=== PATIENT | male | born 1950 | race Caucasian/White ===

== ENCOUNTER 2017-03-23 14:07 | Inpatient (IN) | payer OTHER, MEDICARE ==
[~2017-03-23 14:07] MED LIST: ALPR0.5T99 PO; DILA2TAB4 PO; FERR324T4 PO; GABA300C5 PO; LISI10TA3 PO; METO25TA3 PO; PAIN MEDICINE PO; PRIN10TA PO; SOMA350T PO; TAB-TAB PO
[2017-03-23] MEDS ORDERED: FLUMAZENIL 0.5 MG/5 ML VIAL IV PUSH PRN (16:45)
[2017-03-23] MEDS ORDERED: LORazepam 2 MG TAB PO PRN (16:45)
[2017-03-23] MEDS ORDERED: LACTULOSE SYRUP 20 GM/30 ML CUP PO PRN (16:45)
[2017-03-23] MEDS ORDERED: MAGNESIUM HYDROXIDE SUSP 30 ML CUP PO PRN (16:45)
[2017-03-23] MEDS ORDERED: SENNOSIDES 8.6 MG TAB PO PRN (16:45)
[2017-03-23] MEDS ORDERED: SODIUM CHLORIDE 0.9% FLUSH 10 ML FLUSH IV FLUSH PRN (16:45)
[2017-03-23] MEDS ORDERED: LORazepam 1 MG TAB PO PRN (16:45)
[2017-03-23] MEDS ORDERED: ONDANSETRON HCL 4 MG/2 ML VIAL IVP PRN (16:45)
[2017-03-23] MEDS ORDERED: NALOXONE HCL 0.4 MG/ML AMP IV PRN (16:45)
[2017-03-23] MEDS ORDERED: ENALAPRILAT 1.25 MG/ML VIAL IV PUSH PRN (16:45)
[2017-03-23] MEDS ORDERED: HYDROmorphone HCL PF 1 MG/ML VIAL IV PUSH PRN (16:45)
[2017-03-23] MEDS ORDERED: LORazepam 2 MG/ML VIAL IV PUSH PRN ×5 (16:45)
[2017-03-23] MEDS ORDERED: BISACODYL 10 MG SUPP RECTAL PRN (16:45)
[2017-03-23 17:10] LABS: INDIRECT BILIRUBIN 0.5 MG/DL (0.0-0.8); TOTAL BILIRUBIN ADULT 0.6 MG/DL (0.2-1.0)
[2017-03-23 18:07] LABS: AMYLASE 124 U/L (25-115); CREATINE KINASE 143 U/L (39-308)
[2017-03-23 18:47] LABS: CKMB LESS THAN 1.0 NG/ML (0.5-3.6)
[2017-03-23] MEDS: DOCUSATE SODIUM 50 MG/SENNA 8.6 MG TAB PO SCH (19:50)
[2017-03-23] MEDS: SODIUM CHLORIDE 0.9% FLUSH 10 ML FLUSH IV FLUSH SCH (19:52)
[2017-03-23] MEDS: SODIUM CHLOR 0.9% 1000 ML INJ 1,000 ML IV SCH (19:52)
[2017-03-23] MEDS: hydrALAZINE HCL 20 MG/ML VIAL IV PUSH PRN (19:52)
[2017-03-23] MEDS: NITROGLYCERIN 2% OINT 1 GM PACKET TOPICAL SCH (19:52)
[2017-03-23 20:21] VITALS: BP 190/90; PULSE 67; RESP 20; TEMP 99.1; O2SAT 98
[2017-03-23 20:27] VITALS: PULSE 69
[2017-03-23 23:15] VITALS: PULSE 80
[2017-03-24] VITALS (9 sets, daily range): BP systolic 130–183; BP diastolic 75–114; PULSE 71–90; RESP 16–22; TEMP 96.7–98.9; O2SAT 92–97
[2017-03-24] MEDS: NITROGLYCERIN 2% OINT 1 GM PACKET TOPICAL SCH ×4 (00:37→18:07)
[2017-03-24 01:20] LABS: CREATINE KINASE 70 U/L (39-308)
[2017-03-24] MEDS: hydrALAZINE HCL 20 MG/ML VIAL IV PUSH PRN ×2 (04:54→22:22)
[2017-03-24] MEDS: SODIUM CHLOR 0.9% 1000 ML INJ 1,000 ML IV SCH ×3 (05:32→23:04)
[2017-03-24 07:24] LABS: AUTOMATED NEUTROPHIL # 11.9 TH/MM3 (1.8-7.7); BASOPHIL % 0.2 % (0.0-2.0); EOSINOPHIL % 0.1 % (0.0-4.0); HEMATOCRIT 42.2 % (39.0-51.0); HEMO FLAGS DIFF FINAL; LYMPH % 9.2 % (9.0-44.0); LYMPHOCYTE # 1.3 TH/MM3 (1.0-4.8); MEAN CELL VOLUME 92.8 FL (80.0-100.0); MEAN CORPUSCULAR HEMOGLOBIN 31.7 PG (27.0-34.0); MEAN CORPUSCULAR HGB CONC 34.1 % (32.0-36.0); MONO % 7.2 % (0.0-8.0); NEUT % 83.3 % (16.0-70.0); PLATELET COUNT 210 TH/MM3 (150-450); RED BLOOD COUNT 4.55 MIL/MM3 (4.50-5.90); RED CELL DISTRIBUTION WIDTH 12.6 % (11.6-17.2); WHITE BLOOD COUNT 14.3 TH/MM3 (4.0-11.0)
[2017-03-24] MEDS: SODIUM CHLORIDE 0.9% FLUSH 10 ML FLUSH IV FLUSH SCH ×2 (09:00→22:20)
--- NOTE | 2017-03-24 09:03 | EKG ---
Date Performed: 03/24/2017 Time Performed: 00:02:18 PTAGE: 67 years EKG: Sinus rhythm POSSIBLE RIGHT VENTRICULAR CONDUCTION DELAY BORDERLINE ECG PREVIOUS TRACING : 03/03/2010 23.36 DOCTOR: Dhruv Kaiser Interpretating Date/Time 03/24/2017 09:02:13
[2017-03-24] MEDS: DOCUSATE SODIUM 50 MG/SENNA 8.6 MG TAB PO SCH ×2 (09:42→22:21)
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
[2017-03-24] MEDS ORDERED: REGADENOSON INJ 0.4 MG/5 ML SYR IV ONE (11:09)
--- NOTE | 2017-03-24 12:03 | RADRPT ---
EXAM DATE/TIME: 03/24/2017 10:55 [facility] COMPARISON: No previous studies available for comparison. INDICATIONS : Substernal chest pain. Angina. DOSE: 25.8 mCi Tc99m Myoview at stress. 8.1 mCi Tc99m Myoview at rest. 0.4 mg Lexiscan STRESS SYMPTOMS: None. EJECTION FRACTION: > 70% MEDICAL HISTORY : Hypertension. SURGICAL HISTORY : Back surgery and testical removed. ENCOUNTER: Initial ACUITY: 1 day PAIN SCALE: 5/10 LOCATION: Substernal chest TECHNIQUE: The patient underwent pharmacologic stress with infusion of prescribed dose. Continuous ECG tracing was monitored during stress. Gated SPECT imaging was performed after stress and conventional SPECT i maging was performed at rest. The examination was performed on a SPECT/CT scanner, both attenuation and non-corrected datasets were reviewed. FINDINGS: DISTRIBUTION: The maximum perfused segment at stress is in the septal wall. PERFUSION STUDY: The pattern of perfusion at stress is within normal limits. GATED STUDY: There is intact wall motion and thickening without hypokinetic or dyskinetic segments. CONCLUSION: Normal examination. RISK CATEGORY: Low (<1% Annual Mortality Rate) Arnol Snow MD on March 24, 2017 at 12:01 Board Certified Radiologist. This report was verified electronically.
--- NOTE | 2017-03-24 15:14 | HHI.DCPOC ---
Discharge Care Plan Diagnosis: (1) Chest pain Goals to Promote Your Health * To prevent worsening of your condition and complications * To maintain your health at the optimal level Directions to Meet Your Goals Take your medications as prescribed Follow your dietary instruction Follow activity as directed Keep your appointments as scheduled Take your immunizations and boosters as scheduled If your symptoms worsen call your PCP, if no PCP go to Urgent Care Center or Emergency Room Smoking is Dangerous to Your Health. Avoid second hand smoke Call the 24-hour hour crisis hotline for domestic abuse at Nella Orellana MD Mar 24, 2017 15:14
[2017-03-24] MEDS ORDERED: LEVE500 PO (15:47)
--- NOTE | 2017-03-24 21:07 | MG ---
cc: BRITTNEY GREENBERG M.D. Lab No: Date: 03/24/2017 Age: Sex: M Race: DATE OF 1950, 67 years old. EEG NUMBER [id number] REFERRING PHYSICIAN Dr. Stark. ROOM 8318 With hyperventilation and photic stimulation. Some rhythmic activity towards the end of the study is noted but oxygen therapy technician marked with start and stop. Awake, drowsy study. INDICATION A 67-year-old man had a seizure, then sharp left-sided chest pain with shortness of breath. Workup was negative. History of anemia, alcohol, tobacco, substance abuse. MEDICATIONS On Apresoline. Lexiscan was done I believe and nitroglycerine. DESCRIPTION OF RECORD The patient has an alpha rhythm of 8.0-8.5 Hz, 20 40 microvolts. There is symmetrical background, some muscle movement myogenic artifact is seen. EKG is artifactual. Photic stimulation does elicit a posterior driving response but superimposed eye movement is seen as well. Hyperventilation is symmetrical. Eye movement is noted again. Traffic Administrator notes and documents some sharps seen predominantly in the frontal central regions initially and then it goes to bilateral. at epoch 119 and then dissipates on 120, then again by epoch 125 127. Isolated event. Phase reversals seen at epoch 143 again in the frontal central right region. IMPRESSION Abnormal EEG due to some sharp wave activity as well phase reversals. Some were occurring more on the right hemisphere. Rule out structural lesion, stroke, mass versus other. Clinical correlation indicated. MD BIMAL Riley/BRYCE /8:23 PM /8:52 PM
[2017-03-24] MEDS: levETIRAcetam 500 MG TAB PO SCH (22:22)
[2017-03-25] VITALS: BP 155/99; PULSE 119; RESP 18; TEMP 98.6; O2SAT 93
[2017-03-25] MEDS: NITROGLYCERIN 2% OINT 1 GM PACKET TOPICAL SCH ×2 (06:44)
[2017-03-25 08:00] VITALS: BP 100/80; PULSE 122; RESP 18; TEMP 97.6; O2SAT 93
[2017-03-25] MEDS: levETIRAcetam 500 MG TAB PO SCH (08:59)
[2017-03-25] MEDS: SODIUM CHLORIDE 0.9% FLUSH 10 ML FLUSH IV FLUSH SCH (09:00)
[2017-03-25] MEDS: DOCUSATE SODIUM 50 MG/SENNA 8.6 MG TAB PO SCH (09:00)
--- NOTE | 2017-03-25 10:33 | RADRPT ---
EXAM DATE/TIME: 03/25/2017 10:09 [facility] COMPARISON: No previous studies available for comparison. INDICATIONS : Fell two days ago. Hit vertex area. RADIATION DOSE: 60.76 CTDIvol (mGy) MEDICAL HISTORY : Seizures. Hypertension. SURGICAL HISTORY : None. ENCOUNTER: Initial ACUITY: 2 days PAIN SCALE: 2/10 LOCATION: cranial TECHNIQUE: Multiple contiguous axial images were obtained of the head. Using automated exposure control and adj ustment of the mA and/or kV according to patient size, radiation dose was kept as low as reasonably a chievable to obtain optimal diagnostic quality images. DICOM format image data is available electro nically for review and comparison. FINDINGS: CEREBRUM: The ventricles are normal for age. No evidence of midline shift, mass lesion, hemorrhage or acute in farction. No extra-axial fluid collections are seen. POSTERIOR FOSSA: The cerebellum and brainstem are intact. The 4th ventricle is midline. The cerebellopontine angle i s unremarkable. EXTRACRANIAL: The visualized portion of the orbits is intact. SKULL: The calvaria is intact. No evidence of skull fracture. CONCLUSION: No acute disease. Arnol Snow MD on March 25, 2017 at 10:30 Board Certified Radiologist. This report was verified electronically.
[2017-03-25] MEDS: SODIUM CHLOR 0.9% 1000 ML INJ 1,000 ML IV SCH (11:05)
--- NOTE | 2017-03-25 11:19 | HHI.DCPOC ---
Discharge Care Plan Diagnosis: (1) Seizure disorder Goals to Promote Your Health * To prevent worsening of your condition and complications * To maintain your health at the optimal level Directions to Meet Your Goals Take your medications as prescribed Follow your dietary instruction Follow activity as directed Keep your appointments as scheduled Take your immunizations and boosters as scheduled If your symptoms worsen call your PCP, if no PCP go to Urgent Care Center or Emergency Room Smoking is Dangerous to Your Health. Avoid second hand smoke Call the 24-hour hour crisis hotline for domestic abuse at Nella Orellana MD Mar 25, 2017 11:19
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
--- NOTE | 2017-03-25 12:22 | ECHRPT ---
Indication: cp CONCLUSIONS Normal left ventricular size. No regional wall motion abnormalities are present. [id number] mitral valve regurgitation. There is mild tricuspid valve regurgitation. There is estimated mild pulmonary hypertension present (range 40-50 mmHg). The pulmonary valve is not well visualized. BP: / HR: Rhythm: MEASUREMENTS (Male / Female) Normal Values Technical Quality:Good 2D ECHO LV Diastolic Diameter PLAX 4.0 cm 4.2 - 5.9 / 3.9 - 5.3 cm LV Systolic Diameter PLAX 2.8 cm IVS Diastolic Thickness 1.3 cm 0.6 - 1.0 / 0.6 - 0.9 cm LVPW Diastolic Thickness 1.0 cm 0.6 - 1.0 / 0.6 - 0.9 cm LV Relative Wall Thickness 0.6 RV Internal Dim ED PLAX 2.4 cm M-MODE Aortic Root Diameter MM 4.2 cm LA Systolic Diameter MM 2.8 cm LA Ao Ratio MM 0.7 AV Cusp Separation MM 2.3 cm DOPPLER TR Peak Velocity 281.0 cm/s TR Peak Gradient 31.6 mmHg FINDINGS LEFT VENTRICLE The left ventricular systolic function is normal with an estimated ejection fraction in the range of 60-65%. Normal left ventricular size. No regional wall motion abnormalities are present. RIGHT VENTRICLE Normal right ventricular size and systolic function. LEFT ATRIUM The left atrial size is normal. RIGHT ATRIUM The right atrial size is normal. ATRIAL SEPTUM Normal atrial septal thickness without atrial level shunting by limited color doppler interrogation. AORTA The aortic root and proximal ascending aorta are normal in size on limited imaging. MITRAL VALVE Structurally normal mitral valve. [id number] mitral valve regurgitation. AORTIC VALVE Trileaflet aortic valve. No aortic valve stenosis or regurgitation. TRICUSPID VALVE Structurally normal tricuspid valve. There is mild tricuspid valve regurgitation. There is estimated mild pulmonary hypertension present (range 40-50 mmHg). PULMONARY VALVE The pulmonary valve is not well visualized. VESSELS The inferior vena cava is normal in size. PERICARDIUM No pericardial effusion. Jim Rangel MD (Electronically Signed) Final Date:25 March 2017 12:21
--- NOTE | 2017-03-26 17:04 | TR ---
Date Performed: 03/24/2017 Time Performed: 11:19:12 DOCTOR: Brianna Martinez DRUG LIST: CLINICAL HISTORY: REASON FOR TEST: REASON FOR ENDING: OBSERVATION: CONCLUSION: Lexiscan stress test was performed under standard four minute protocol. Radionuclid e was injected one minute prior to ending the test. No electrocardiographic abormalities were present to suggest ischemia. Nuclear imaging and interpretation are pending. COMMENTS:
[2017-04-20] MEDS ORDERED: CLIN1CAP6 PO (01:24)
[2017-05-03] MEDS ORDERED: BACT800T5 PO (15:53)
== END 2017-03-25 11:32 | disposition home or self-care (01) | DRG 313 ==
LOC: EDBD → NEDDLT 18:41 → PH3B 18:51
PROVIDERS: ADMIT Hospitalist; ATTEND Hospitalist
DX: R07.9 Chest pain, unspecified (principal); J44.9 Chronic obstructive pulmonary disease, unspecified; G40.909 Epilepsy, unspecified, not intractable, without status epilepticus; R74.8 Abnormal levels of other serum enzymes; R51 Headache; F12.10 Cannabis abuse, uncomplicated; F17.210 Nicotine dependence, cigarettes, uncomplicated
CPT/HCPCS: 70450; 71275; 74176; 78452; 80048; 80076; 82150; 82550; 82552; 83690; 83735; 83880; 84484; 85025; 85610; 85730; 93005; 93017; 93306; 95819; 96360; A9502; J0360; J1170; J2785; J7030; Q9967